=== PATIENT | female | born 1940 ===

== ENCOUNTER 2018-08-09 12:24 | Inpatient (IN) | payer OTHER ==
[~2018-08-09] VITALS: Ht 162.6 cm; Wt 78.5 kg
[2018-08-09] MEDS ORDERED: LANTUS SOL100 UNIT/1 (13:24)
[2018-08-09] MEDS ORDERED: HUMALOG100 UNIT/1 (13:24)
[2018-08-09] MEDS ORDERED: GABAPENTIN100 MG (13:25)
[2018-08-09] MEDS ORDERED: TOPROL XL25 M1 (13:25)
[2018-08-09] MEDS ORDERED: SYNTHROID88 MCG (13:26)
[2018-08-09] MEDS ORDERED: ATORVASTATIN CA10 MG (13:26)
[2018-08-09] MEDS ORDERED: LOSARTAN POTASS50 MG (13:26)
[2018-08-09] MEDS ORDERED: TESSALON PERLE100 M1 (13:26)
[2018-08-09] MEDS ORDERED: VENTOLIN HFA18 GM (13:27)
== END 2018-08-15 09:22 | DRG 194 ==
LOC: ER 12:24 → MEDJ 18:27
PROC: 4A033R1 Measurement of Arterial Saturation, Peripheral, Percutaneous Approach (ICD-10-PCS; principal; 2018-08-09)
PROC: 3E0F7GC Introduction of Other Therapeutic Substance into Respiratory Tract, Via Natural or Artificial Opening (ICD-10-PCS; 2018-08-09)
DX: J18.9 Pneumonia, unspecified organism (principal); J45.42 Moderate persistent asthma with status asthmaticus; B37.0 Candidal stomatitis; E11.22 Type 2 diabetes mellitus with diabetic chronic kidney disease; I13.10 Hypertensive heart and chronic kidney disease without heart failure, with stage 1 through stage 4 chronic kidney disease, or unspecified chronic kidney disease; N18.1 Chronic kidney disease, stage 1; E11.42 Type 2 diabetes mellitus with diabetic polyneuropathy; E11.3293 Type 2 diabetes mellitus with mild nonproliferative diabetic retinopathy without macular edema, bilateral; E78.4 Other hyperlipidemia; E03.8 Other specified hypothyroidism; E11.65 Type 2 diabetes mellitus with hyperglycemia; B95.62 Methicillin resistant Staphylococcus aureus infection as the cause of diseases classified elsewhere

== ENCOUNTER 2021-03-01 02:37 | Inpatient (IN) | payer OTHER ==
[~2021-03-01] VITALS: Ht 165.1 cm; Wt 72.6 kg
[~2021-03-01 02:37] MED LIST: ATORVASTATIN CA10 MG; GABAPENTIN100 MG; HUMALOG100 UNIT/1; LANTUS SOL100 UNIT/1; LOSARTAN POTASS50 MG; SYNTHROID88 MCG; TESSALON PERLE100 M1; TOPROL XL25 M1; VENTOLIN HFA18 GM
[2021-03-01] MEDS ORDERED: ZOLOFT25 MG (02:46)
[2021-03-01] MEDS ORDERED: LIPITOR20 MG (02:46)
[2021-03-01] MEDS ORDERED: NAMENDA5 MG (02:46)
[2021-03-01] MEDS ORDERED: TRILEPTAL150 MG (02:47)
[2021-03-01] MEDS ORDERED: CHILDREN'S ASPI81 MG (02:47)
[2021-03-01] MEDS ORDERED: ARICEPT10 MG (02:47)
[2021-03-04] MEDS ORDERED: CANDESARTAN CIL32 MG (13:15)
[2021-03-04] MEDS ORDERED: AMLODIPINE BESY10 MG (13:15)
[2021-03-04] MEDS ORDERED: LEVOBUNOLOL HCL5 ML (13:16)
[2021-03-04] MEDS ORDERED: LORAZEPAM0.5 MG (13:16)
[2021-03-04] MEDS ORDERED: PENTOXIFYLLINE400 MG (13:17)
== END 2021-03-10 21:00 | disposition home or self-care (01) | DRG 292 ==
LOC: ER 02:37 → ICU-2 16:02 → SEC-K 03-03 19:43 → MEDJ 03-04 00:43
PROVIDERS: ADMIT Internal Medicine; ATTEND Internal Medicine
PROC: 4A033R1 Measurement of Arterial Saturation, Peripheral, Percutaneous Approach (ICD-10-PCS; 2021-03-01)
PROC: 3E0F7GC Introduction of Other Therapeutic Substance into Respiratory Tract, Via Natural or Artificial Opening (ICD-10-PCS; 2021-03-01)
PROC: 02HV33Z Insertion of Infusion Device into Superior Vena Cava, Percutaneous Approach (ICD-10-PCS; principal; 2021-03-02)
PROC: B24BZZZ Ultrasonography of Heart with Aorta (ICD-10-PCS; 2021-03-03)
PROC: BW2510Z Computerized Tomography (CT Scan) of Chest, Abdomen and Pelvis using Low Osmolar Contrast, Unenhanced and Enhanced (ICD-10-PCS; 2021-03-03)
PROC: 4A12X4Z Monitoring of Cardiac Electrical Activity, External Approach (ICD-10-PCS; 2021-03-03)
PROC: 0W993ZX Drainage of Right Pleural Cavity, Percutaneous Approach, Diagnostic (ICD-10-PCS; 2021-03-04)
PROC: 3E0F7SF Introduction of Other Gas into Respiratory Tract, Via Natural or Artificial Opening (ICD-10-PCS; 2021-03-05)
PROC: 0W9B3ZX Drainage of Left Pleural Cavity, Percutaneous Approach, Diagnostic (ICD-10-PCS; 2021-03-07)
DX: I50.33 Acute on chronic diastolic (congestive) heart failure (principal); J90 Pleural effusion, not elsewhere classified; J81.1 Chronic pulmonary edema; N17.8 Other acute kidney failure; E87.0 Hyperosmolality and hypernatremia; I10 Essential (primary) hypertension; J44.9 Chronic obstructive pulmonary disease, unspecified; E11.8 Type 2 diabetes mellitus with unspecified complications; E03.8 Other specified hypothyroidism; R09.02 Hypoxemia; E78.49 Other hyperlipidemia; F01.50 Vascular dementia, unspecified severity, without behavioral disturbance, psychotic disturbance, mood disturbance, and anxiety; I27.20 Pulmonary hypertension, unspecified; E87.6 Hypokalemia; L29.8 Other pruritus; N18.9 Chronic kidney disease, unspecified; Z20.822 Contact with and (suspected) exposure to COVID-19